=== PATIENT | female | born 1980 | race Caucasian/White ===

== ENCOUNTER 2018-05-21 19:01 | Day surgery (SDC) | payer OTHER ==
[~2018-05-21 19:01] MED LIST: Dexamethasone 20 MG/5 ML VIAL ONE; ISOVUE-370 76%-LOCM 1 ML ONE; Ketorolac Tromethamine 30 MG/ML VIAL ONE; Lidocaine 1% PF 5 ML VIAL ONE; Ondansetron PF 4 MG/2 ML Vial ONE; PROPOFOL 200 MG/20 ML VIAL ONE; Rocuronium Bromide 10 MG/ML (10ML VIAL) ONE; Succinylcholine Chloride 20 MG/ML 10 ml SYRINGE FS ONE
[2018-05-21 19:52] LABS: #Basophils 0.1 thou/uL (0.0-0.2); #Eosinphils 0.3 thou/uL (0.0-0.7); #Lymphocytes 1.9 thou/uL (1.20-3.40); #Monocytes 0.4 thou/uL (0.11-0.59); #Neutrophils 9.4 thou/uL (1.40-6.50); %Basophils 0.6 % (0.0-1.0); %Eosinophils 2.1 % (0.0-10.0); %Lymphocytes 15.9 % (21.0-51.0); %Monocytes 3.2 % (0.0-10.0); %Neutrophils 78.2 % (42.0-75.0); Hemoglobin 13.7 g/dL (12.0-16.0); Mean Corpuscular HGB CONC 33.3 g/dL (32.0-36.0); Mean Corpuscular Hemoglobin 30.3 pg (27.0-31.0); Mean Platelet Volume 7.7 fL (7.4-10.4); Platelet Count 214 thou/uL (130-400); RBC Distribution Width 12.3 % (11.5-14.5); Red Blood Cell (RBC) Count 4.51 mill/uL (4.20-5.40)
[2018-05-21 19:57] LABS: BHCG - Serum Negative (NEGATIVE); Pregs Control Background? CLEAR/WHITE (CLR/WHITE); Pregs Control Bar Appear? YES (CONTROL BAR)
[2018-05-21 20:11] LABS: ALT (SGPT) 12 U/L (8-55); AST (SGOT) 13 U/L (5-34); Albumin 4.7 g/dL (3.5-5.0); Alkaline Phosphatase 49 U/L (40-150); Anion Gap 14 mmol/L (10-20); BUN (Urea Nitrogen) 12 mg/dL (7.0-18.7); Bilirubin, Total 0.7 mg/dL (0.2-1.2); Calc. Creatinine Clearance 0 mL/min (70-130); Calcium 9.7 mg/dL (7.8-10.44); Carbon Dioxide 24 mmol/L (22-29); Chloride 107 mmol/L (98-107); Estimated GFR-MDRD 56; Globulin 2.7 g/dL (2.4-3.5); Glucose 111 mg/dL (70-105); Lipase 15 U/L (8-78); Potassium 3.6 mmol/L (3.5-5.1); Protein, Total 7.4 g/dL (6.0-8.3); Sodium 141 mmol/L (136-145)
[2018-05-21 20:12] LABS: Bilirubin Negative (Negative); Blood, Urine Small (Negative); Clarity CLEAR (Clear); Glucose, Urine (Dipstick) Negative (Negative); Leukocyte Negative (Negative); Nitrite Negative (Negative); Protein, Urine (Dipstick) Negative (Neg-Trace); Specific Gravity, Urine 1.024 (1.002-1.036); pH, Urine 6.5 (5.0-9.0)
[2018-05-21 20:15] LABS: Bacteria/HPF Rare-Few HPF (None Seen); Hyaline Casts/LPF 0-3 HYALINE CAST LPF (0-3 Hyaline); Pathc Cast-AUWi Flag 0.87 (0-2.49); WBC/HPF 0-3 HPF (0-3)
[2018-05-21] MEDS ORDERED: Piperacillin/Tazobactam 3.375 GM VIAL ONE (20:44)
--- NOTE | 2018-05-21 20:44 | CT ---
CONTRAST ENHANCED CT IMAGES ABDOMEN AND PELVIS: 05/21/18 HISTORY: Abdominal pain, nausea, loose stools. Contrast enhanced CT images of the abdomen and pelvis obtained. IV contrast was given. The lung bases are unremarkable. No evidence of free intraperitoneal air seen. A small umbilical hernia is seen. The liver, spleen, pancreas, gallbladder, adrenal glands, and kidneys are unremarkable. No evidence of periaortic lymphadenopathy seen. There is abnormal inflammatory change surrounding the mildly dilated appendix. Appendiceal diameter m easures up to 11 mm. This may represent early changes of appendicitis. No evidence of bowel obstructi on seen. An intrauterine device is seen. The ovaries are unremarkable. IMPRESSION: Some surrounding fat stranding surrounding the appendix which is mildly dilated. Findings concerning for changes of early appendicitis. POS: [facility]
[2018-05-21] MEDS ORDERED: Bupivacaine HCl 0.5%/Epinephrine 1:200,000/PF 30 ml Vial ONE (21:01)
[2018-05-21] MEDS ORDERED: Fentanyl 100 MCG/2 ML VIAL ONE (21:38)
--- NOTE | 2018-05-21 22:25 | HP ---
CHIEF COMPLAINT: Abdominal pain. HISTORY: Ms. 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 She states that yesterday afternoon right before her shift began, she started feeling some abdominal discomfort in the lower abdomen. She came and then worked for full shift and was able to perform her usual duty. She thought it might get better if she went to bed but when she woke up this afternoon it was worse than before. The pain was made somewhat worse by getting up and moving around. She could not identify anything that was making it better and the pain was localized to the right lower quadrant, so she decided to come into the emergency room. She denies any fevers or chills. She had nausea, but no vomiting. Her appetite was somewhat less than usual, but she was still eating and keeping food down and in fact had dinner around 6 o'clock. Evaluation in the emergency room showed an elevated white count and a CT was ordered which showed stranding around the dilated appendix consistent with early appendicitis. PAST MEDICAL HISTORY: Hypothyroidism due to Graves disease. PAST SURGICAL HISTORY: Inguinal hernia repair as a baby. ALLERGIES: NO KNOWN ALLERGIES. OUTPATIENT MEDICATIONS: Include Synthroid and fenofibrate. FAMILY HISTORY: Noncontributory. REVIEW OF SYSTEMS: Ten-system review of systems negative except for HPI. SOCIAL HISTORY: She does not smoke, drink, or use illicit drugs. PHYSICAL EXAMINATION: VITAL SIGNS: The patient is afebrile with normal vital signs. GENERAL: Reveals a healthy-looking young woman, in no acute distress. She is not flushed or toxic in appearance and she is able to move about the bed without difficulty. HEENT: Unremarkable. NECK: Supple without lymphadenopathy or thyroid nodules. HEART: Regular in its rate and rhythm without murmurs, rubs, or gallops. LUNGS: Clear to auscultation bilaterally. ABDOMEN: Soft and nondistended. She has no palpable hernias or masses. She is tender to palpation in the right lower quadrant and has referred pain in the right lower quadrant, which relieves with palpation in the left lower quadrant. EXTREMITIES: Warm and well perfused without edema. NEURO: No focal deficits. PSYCHIATRIC: Alert, oriented, and appropriate. LABORATORY DATA: White count is mildly elevated at 12,000, and she does have a left shift. Electrolytes are unremarkable. LFTs are normal. Lipase is normal. Serum is negative. DIAGNOSTIC STUDIES: CT images are reviewed and I agree with the written report. Her appendix is dilated and there is some stranding in that region. There is also some stranding around the terminal ileum, but this looks reactive. The bowel wall does not look thickened or abnormal. ASSESSMENT: Acute appendicitis. PLAN: Laparoscopic appendectomy. Diagnosis and recommended treatment were discussed with the patient. Inherent risks of surgery were discussed. These include, but are not limited to, bleeding, infection, risk of anesthesia, damage to nearby structures including bowel, bladder, blood vessels, need for open surgery, need for further procedure. She understands and accepts these risks and wishes to proceed. If she does not have any evidence of perforation, she may go home postoperatively. If there is evidence of perforation, she will need to stay for IV antibiotics. All of her questions answered and she was posted emergently for the operating room. Job ID: [id number]
[2018-05-21] MEDS ORDERED: Promethazine HCl 25 MG/ML VIAL IM PRN (23:27)
[2018-05-21] MEDS ORDERED: Promethazine HCl 25 MG/ML VIAL SLOW IVP PRN (23:27)
[2018-05-21] MEDS ORDERED: Ondansetron HCl/PF 4 MG/2 ML Vial IVP PRN (23:27)
[2018-05-21] MEDS ORDERED: Promethazine HCl 25 MG/ML VIAL ONE (23:39)
[2018-05-22] MEDS ORDERED: HYDROcodone/Acetaminophen 5/325 mg Tablet ONE (00:22)
--- NOTE | 2018-05-22 14:58 | PDOC.OP ---
Operative Note - Operative Note Operative Note: PROCEDURE: Laparoscopic appendectomy SURGEON: Francisca Cole M.D. DATE OF PROCEDURE: 05/21/2018 PREOPERATIVE DIAGNOSIS: Appendicitis POSTOPERATIVE DIAGNOSIS: Appendicitis and umbilical hernia containing falciform ligament HISTORY: Patient with onset of abdominal pain and nausea yesterday. She came to the emergency room because the pain was getting worse and was found to have acute appendicitis. Recommendation was made to proceed with laparoscopic appendectomy. FINDINGS: Umbilical hernia containing preperitoneal fat from the falciform ligament. Acutely inflamed appendix without evidence of perforation. DESCRIPTION OF PROCEDURE: After informed consent was obtained and appropriate antibiotics continued, the patient was taken to the operating room and placed in the supine position and general endotracheal anesthesia was administered. The bladder was decompressed with a Jeter catheter and the abdomen was prepped and draped in the standard sterile fashion. On palpation of the abdomen with the patient relaxed she was found to have a palpable bulge in the infraumbilical area which was not reducible. The decision was made to place the larger port at this location or the hernia defect and repair the palpable hernia with sutures afterwards. Local anesthesia was infused to the skin and subcutaneous tissues inferior to the umbilicus. The hernia sac was dissected free circumferentially down to its base which was located at the base of the umbilicus. This was not able to be reduced due to the small size of the fascial defect. The hernia sac was opened and fatty tissues only encountered. These were able to be slowly reduced into the abdominal cavity. The fascial defect itself was about 1 cm with a large part was able to be placed through this defect. Carbon dioxide gas insufflated without difficulty. Opening pressure was less than 5. Carbon dioxide gas was insufflated to an intra-abdominal pressure 15 and the patient tolerated this well. The abdominal cavity was examined and no adhesions seen. Two additional ports were placed in the suprapubic and left lateral abdomen under direct laparoscopic vision after local anesthesia was infused at these sites. The camera was moved to the left lower quadrant location and the umbilical area examined. There were no adhesions at this level and it was felt that the fatty tissue in the hernia sac was fossa falciform ligament which extended down below the level of the umbilicus. The camera was then moved back to the umbilical position and attention turned to the appendix. The appendix was identified and appeared inflamed but not perforated. This was densely adherent to the fatty tissues lateral and posterior to the cecal cap. The appendix was grasped by the mesoappendix and elevated, and the appendix was dissected free of the surrounding inflamed fatty tissues. The mesoappendix was then sequentially ligated and divided down to the base of the appendix, which was normal in appearance and was clearly seen to be at the confluence of the tenia. Two Endoloops were placed around the base of the appendix and the appendix was divided between these Endoloops, placed into an EndoCatch bag and drawn out through the suprapubic incision. The suprapubic trocar was then replaced and the operative site was easily irrigated to clear. The suprapubic and left lateral trocars were then removed and hemostasis verified. Carbon dioxide gas was desufflated through the umbilical trocar which was then removed. The fascial defect was repaired under direct vision with 0 Vicryl suture on a UR 6 needle with excellent technical result. The skin incisions were irrigated and additional local anesthesia infused at each site. The subcutaneous tissues at the level of the umbilicus were reapproximated with 3-0 Monocryl sutures. The skin at all incision sites was closed with 4-0 subcuticular Monocryl sutures and Dermabond dressings were placed. Once the Dermabond dressing was dry, a cotton ball and Tegaderm dressing was placed at the umbilicus as a pressure dressing. The patient was extubated and taken to the recovery room in good condition. Estimated blood loss was minimal. There were no complications. SPECIMEN: Appendix.
== END 2018-05-22 00:40 | disposition home or self-care (01) ==
LOC: ERS 19:01 → SDC/OP 21:52
PROVIDERS: ATTEND Surgery
DX: K35.80 Unspecified acute appendicitis (principal); K42.0 Umbilical hernia with obstruction, without gangrene; E05.00 Thyrotoxicosis with diffuse goiter without thyrotoxic crisis or storm; E03.9 Hypothyroidism, unspecified; F17.210 Nicotine dependence, cigarettes, uncomplicated; E78.5 Hyperlipidemia, unspecified; Z79.899 Other long term (current) drug therapy
CPT/HCPCS: 36415; 74177; 80053; 81003; 81015; 83690; 84703; 85025; 88304; 96365; J0670; J1100; J1885; J2001; J2405; J2543; J2550; J2704; J3010; Q9966

== ENCOUNTER 2018-05-29 07:27 | Inpatient (IN) | payer OTHER ==
[2018-05-29] MEDS ORDERED: ISOVUE-370 76%-LOCM 1 ML ONE (07:47)
[2018-05-29 08:38] LABS: #Eosinphils 0.2 thou/uL (0.0-0.7); #Lymphocytes 1.2 thou/uL (1.20-3.40); #Monocytes 0.5 thou/uL (0.11-0.59); #Neutrophils 7.9 thou/uL (1.40-6.50); %Basophils 0.4 % (0.0-1.0); %Eosinophils 2.5 % (0.0-10.0); %Lymphocytes 12.4 % (21.0-51.0); %Monocytes 5.4 % (0.0-10.0); %Neutrophils 79.4 % (42.0-75.0); Hemoglobin 12.4 g/dL (12.0-16.0); Mean Corpuscular HGB CONC 33.1 g/dL (32.0-36.0); Mean Corpuscular Hemoglobin 30.1 pg (27.0-31.0); Mean Platelet Volume 6.3 fL (7.4-10.4); Platelet Count 381 thou/uL (130-400); RBC Distribution Width 12.2 % (11.5-14.5); Red Blood Cell (RBC) Count 4.11 mill/uL (4.20-5.40)
[2018-05-29 08:57] LABS: ALT (SGPT) 14 U/L (8-55); AST (SGOT) 12 U/L (5-34); Albumin 4.1 g/dL (3.5-5.0); Alkaline Phosphatase 71 U/L (40-150); Anion Gap 16 mmol/L (10-20); BUN (Urea Nitrogen) 8 mg/dL (7.0-18.7); Bilirubin, Total 0.3 mg/dL (0.2-1.2); Calc. Creatinine Clearance 0 mL/min (70-130); Calcium 9.8 mg/dL (7.8-10.44); Carbon Dioxide 23 mmol/L (22-29); Chloride 104 mmol/L (98-107); Estimated GFR-MDRD 68; Globulin 3.6 g/dL (2.4-3.5); Glucose 93 mg/dL (70-105); Lipase 7 U/L (8-78); Protein, Total 7.7 g/dL (6.0-8.3); Sodium 139 mmol/L (136-145)
[2018-05-29] MEDS ORDERED: Ketorolac Tromethamine 30 MG/ML VIAL ONE (09:42)
[2018-05-29 10:33] LABS: Bilirubin Negative (Negative); Blood, Urine Small (Negative); Clarity CLOUDY (Clear); Glucose, Urine (Dipstick) Negative (Negative); Leukocyte Large (Negative); Nitrite Negative (Negative); Protein, Urine (Dipstick) Negative (Neg-Trace); Specific Gravity, Urine 1.009 (1.002-1.036); pH, Urine 6.5 (5.0-9.0)
[2018-05-29 10:35] LABS: Bacteria/HPF None Seen HPF (None Seen); Hyaline Casts/LPF 0-3 HYALINE CAST LPF (0-3 Hyaline); Pathc Cast-AUWi Flag 0.14 (0-2.49); Squamous Epithelial None Seen HPF (0-3)
[2018-05-29 10:38] LABS: Pregnancy Test - Urine (BHCG) Negative (Negative); Pregu Control Background? CLEAR/WHITE (CLR/WHITE); Pregu Control Bar Appear? YES (CONTROL BAR); Specific Gravity 1.009 (1.002-1.036); Yeast-AUWi Flag 47.6 (0-25.0)
[2018-05-29 10:45] LABS: RBC/HPF 0-3 HPF (0-3); Yeast-All Forms Rare HPF (None Seen)
--- NOTE | 2018-05-29 11:04 | CT ---
CT ABDOMEN AND PELVIS WITH IV CONTRAST: DATE: 05/29/2018. PROVIDED CLINICAL HISTORY: Right lower quadrant pain status post laparoscopic appendectomy. FINDINGS: Comparison is made with the study dated 05/21/2018. Subsegmental atelectatic changes are seen at each lung base with a small amount of right pleural flui d. The liver, spleen, pancreas, kidneys, and adrenal glands demonstrate an unremarkable CT appearance. Interval changes of appendectomy. There are patchy areas of stranding of the mesenteric fat without localization. There is no evidence for bowel obstruction. There is a single tiny focus of free intr aperitoneal gas that is likely postoperative in nature. No free intraperitoneal fluid is evident. There is a focal area of somewhat circumscribed gas and fluid density within the left hemipelvis osvaldo cent to the left adnexa measuring about 3.8 cm. This appears separate from regional small bowel. Ev aluation is limited in the absence of oral contrast material. IUD is noted centrally within the uterus. The osseous structures and vascular structures appear unre markable. IMPRESSION: A 3.8 cm left adnexal fluid and gas collection, which may reflect abscess. This does not appear to b e percutaneously accessible. POS: [facility]
--- NOTE | 2018-05-29 12:07 | ULT ---
ULTRASOUND PELVIC TRANSVAGINAL WITH DOPPLER: HISTORY: Left periovarian abscess. COMPARISON: CT abdomen and pelvis of same day. FINDINGS: Real-time abel scale, color Doppler, and spectral analysis of the pelvis performed transabdominal and transvaginal approach. The uterus measures 9.1 x 4.3 x 5.2 cm with intrauterine device in place. The right ovary measures 2 .6 x 1.9 x 1.9 cm and the left ovary measures 3.3 x 2.3 x 2.3 cm. Adequate vascular flow to both ova jordon. At the left adnexa just craniad and anterior to the left ovary is a complex collection with spicular reflectors indicating gas. This measures up to 4.3 cm. IMPRESSION: Left periovarian collection containing gas concerning for an abscess given recent postoperative findi ngs. POS: [facility]
[2018-05-29] MEDS ORDERED: MEROPENEM 1 GM/50 ML 1 GM in Premix Bag 1 BAG IVPB SCH ×2 (12:15→16:00)
--- NOTE | 2018-05-29 12:19 | PDOC.EVN ---
Event Note - Event Note Event Note: OBGYN consult at 1215: D/W Dr Vega (ED) via phone (informal consult) This patient is a 38 yo s/p lap appy [address] Henry Cole. The patient arrives to ED for eval of pelvic pain/abdominal pain. CT/Sono state possible pelvic abscess by left ovary. Due to close postop proximity from the lap appy, the likehood that is is new onset TOA (security assurance analyst etiology) is low compared to being a postop abscess. I would recommend admission to gen surgery for postop follow up and IV antibiotics. If diagnostic laparoscopy deemed neded by general surgery, the OBGYN team will be available for intraop eval. For now, would recommend standard IV antibiotics for postop abscess: A/G/Clinda or Rocephin and doxy with flagyl.
--- NOTE | 2018-05-29 13:18 | PDOC.EVN ---
Event Note - Event Note Event Note: OBGYN: Patient has been seen at bedside, consult dictated. Location: ED bed 21 Time: 8623-0095
--- NOTE | 2018-05-29 13:36 | CON ---
DATE OF CONSULTATION: 05/29/2018 TIME OF EVALUATION: Roughly 12:45 until 13:00. LOCATION: ER, bed 21. CONSULTING PHYSICIAN: Dr. Francisca Cole with General Surgery. REASON FOR EVALUATION: Possible intraabdominal/pelvic abscess, questionable TOA. The patient is 8 days status post laparoscopic appendectomy. HISTORY OF PRESENT ILLNESS: This is a 38-year-old female, 3, para 3, status post laparoscopic appendectomy [address] Cole. She has had 3 vaginal deliveries in the past. She states that about 2 to 3 days ago, she started having diarrhea and some increased abdominal pain. She came in for evaluation of the abdominal discomfort. Sonogram and CT scan done through the ER showed a possible abscess on the left lower quadrant adjacent to the ovary. REVIEW OF SYSTEMS: The patient states that she has had some vaginal discharge which is clear/yellowish and some pink discoloration. She denies any vaginal odor. Also on review of systems, it is noted that she has an IUD in place (Mirena) the last 4 years. This was placed by Dr. Simmons. She has had no cycles for the last 4 years. Last, on review of systems, she has been taking Tylenol and Motrin alternatively , so it is unclear if she has had temperature. OB HISTORY: Significant for 3 prior vaginal deliveries. ALLERGIES: NONE. PAST SURGICAL HISTORY: Laparoscopic appendectomy 8 days ago and an inguinal hernia repair as a child when she was about 4 years old. GYNECOLOGICAL HISTORY: She last had sexual intercourse about a week before the laparoscopic surgery, but no surgery since. PHYSICAL EXAMINATION: VITAL SIGNS: Blood pressure is 132/81, pulse is in the 60s, she is afebrile. GENERAL: Clinically, she is in no acute distress. ABDOMEN: Soft and nontender. The incision sites are clean and intact and well healed. There is no evidence of rebound tenderness. Speculum exam was deferred. Interventions ordered, I have ordered and requested a VP3 and a GC and chlamydia PCR vaginal swab. I have discussed this with Dr. Vega and the nursing staff, who will collect this once the PCR tube has arrived in the tube system from the lab. ASSESSMENT: This is a 38-year-old, G3, P3, 8 days status post laparoscopic appendectomy with a left-sided/left lower quadrant, possible abscess. Possibility of a new tubo-ovarian abscesses is unlikely due to the temporal relation to the laparoscopic appendectomy. This may be a postop abscess due to its timing. Additionally, the patient has not had intercourse since surgery and if there was active pelvic inflammatory disease at time of surgery, this may have been seen laparoscopically. Sono confirms IUS in place. PLAN: 1. Admit for IV antibiotics. 2. Please see my previous note entry describing antibiotics preferred. 3. The patient will go home after being at least 24 hours afebrile in-house with oral doxycycline and Flagyl recommended. 4. Follow up with Dr. Simmons for evaluation of the left lower quadrant collection in about 2 to 4 weeks. 5. No acute concerns at this time again. I have discussed this patient with both Dr Cole and Dr Vega. Admission to Dr Cole with us on consults as needed. Job ID: [id number] MTDD
[2018-05-29 14:44] VITALS: BMI 39.1
[2018-05-29] MEDS ORDERED: Morphine 4 MG/ML VIAL SLOW IVP PRN (16:10)
[2018-05-29] MEDS: MEROPENEM 1 GM/50 ML 1 GM in Premix Bag 1 BAG IVPB SCH ×2 (16:42→23:17)
--- NOTE | 2018-05-29 19:41 | PDOC.EVN ---
Event Note - Event Note Event Note: Call from floor: 1944: Notified by patient's RN that VP3 was not sent to lab from ED. It was ordered by my request, to CLAUD[facility], at 1330 or so. I have requested we send the VP3 now. GC and CHL sent already. On meropenam per Gen Surg
[2018-05-29] MEDS: Ketorolac Tromethamine 30 MG/ML VIAL IVP PRN (20:06)
--- NOTE | 2018-05-30 00:17 | PDOC.EVN ---
Event Note - Event Note Event Note: Lab check: VP3 negative
[2018-05-30] MEDS: Ketorolac Tromethamine 30 MG/ML VIAL IVP PRN (02:05)
--- NOTE | 2018-05-30 02:14 | HP ---
CHIEF COMPLAINT: Abdominal pain. HISTORY: Ms. King is a 38-year-old woman who underwent a laparoscopic appendectomy on 05/21/2018. She recovered well postoperatively, but earlier this week developed some crampy abdominal pain and diarrhea. Her son was ill at the time as well, so she thought it was just a stomach virus. However, the crampy abdominal pain has persisted and she has begun having night sweats, so she decided to come into the hospital. She has been alternating Tylenol and ibuprofen for the cramps, so has not had any fevers that she has noticed. Since the diarrhea stopped a couple of days ago, she has not had any bowel movement, but she is not nauseated or throwing up. The pain is in the lower abdomen and she has not been able to identify any definite exacerbating or alleviating factors. She has had some vaginal discharge for the last 2 days. She denies any dysuria, urgency, or frequency. PAST MEDICAL HISTORY: Hypothyroidism due to Graves disease. PAST SURGICAL HISTORY: Inguinal hernia repair as a baby and laparoscopic appendectomy last week. ALLERGIES: NO KNOWN DRUG ALLERGIES. MEDICATIONS: 1. Synthroid. 2. Fenofibrate. FAMILY HISTORY: Noncontributory. REVIEW OF SYSTEMS: Ten system review of systems is negative except per HPI. SOCIAL HISTORY: She works as a nurse in the [employer] and does not smoke, drink, or use illicit drugs. PHYSICAL EXAMINATION: VITAL SIGNS: Temperature 97.7, heart rate 87, respirations 17, 97% saturated on room air, and blood pressure 143/88. GENERAL: Reveals a healthy-appearing young woman, in no acute distress. She is not flushed or toxic in appearance. She is not jaundiced or icteric. HEENT: Unremarkable. NECK: Supple without lymphadenopathy or thyroid nodules. HEART: Regular in its rate and rhythm without murmurs, rubs, or gallops. LUNGS: Clear to auscultation bilaterally. ABDOMEN: Soft and nondistended. She is tender to palpation in the suprapubic area, greater than the right lower quadrant and left lower quadrant. She is nontender to palpation in the upper abdomen. Her laparoscopic incisions are well healed. There is no erythema, induration, or fluctuance. EXTREMITIES: Warm and well perfused without edema. NEUROLOGIC: No focal deficits. PSYCHIATRIC: Alert, oriented, and appropriate. LABORATORY DATA: White count is high normal at 10 with a little bit of a left shift. Electrolytes are unremarkable. Lipase is 7, and LFTs are normal. UA showed greater than 50 white cells, no squamous cells were seen, and no bacteria were seen. There was a small amount of blood and large leukocyte esterase. CT of the abdomen and pelvis showed a left adnexal abscess which measures about 3.8 cm and pelvic ultrasound was consistent with this. ASSESSMENT AND PLAN: Left adnexal abscess. This may be postoperative in nature, although there was no evidence of perforation at the time of her appendicitis, will be an unusual presentation for tubo-ovarian abscess. Her left ovary was not examined during her operation, but no abnormalities were noted on CT at that time. Given the small size, this may be adequately treated with IV antibiotics alone, but if her symptoms do not rapidly resolve, then laparoscopic drainage can be considered. She is going to be admitted for IV antibiotics and observation. Job ID: [id number]
--- NOTE | 2018-05-30 06:32 | PDOC.EVN ---
Event Note - Event Note Event Note: Lab/vitals check: GC and Chl still pending On IV Meropenem TMax 99.0 WBC normal last check Assessment: 8 days postop lap appy with pelvic abscess, infection prevention coordinator source less likely than postop related. IUS (Mirena) intrauterine, in use. VP3 negative. Plan: Continue care as per primary MD (Dr Cole). Once cleared for dsch, would keep on oral ABX for 7-10 days. Patient to follow up with Dr Simmons in 2 weeks.
[2018-05-30] MEDS: MEROPENEM 1 GM/50 ML 1 GM in Premix Bag 1 BAG IVPB SCH (08:21)
[2018-05-30 10:09] LABS: #Eosinphils 0.3 thou/uL (0.0-0.7); #Lymphocytes 1.5 thou/uL (1.20-3.40); #Monocytes 0.4 thou/uL (0.11-0.59); #Neutrophils 5.5 thou/uL (1.40-6.50); %Basophils 0.3 % (0.0-1.0); %Eosinophils 3.5 % (0.0-10.0); %Lymphocytes 19.4 % (21.0-51.0); %Monocytes 4.9 % (0.0-10.0); %Neutrophils 71.8 % (42.0-75.0); Hemoglobin 11.7 g/dL (12.0-16.0); Mean Corpuscular HGB CONC 32.9 g/dL (32.0-36.0); Mean Corpuscular Hemoglobin 29.9 pg (27.0-31.0); Mean Corpuscular Volume 90.8 fL (78.0-98.0); Mean Platelet Volume 6.4 fL (7.4-10.4); Platelet Count 366 thou/uL (130-400); RBC Distribution Width 12.3 % (11.5-14.5); Red Blood Cell (RBC) Count 3.93 mill/uL (4.20-5.40); White Blood Cell (WBC) Count 7.7 thou/uL (4.8-10.8)
[2018-05-30 12:03] VITALS: BP 135/83; TEMP 99.1
--- NOTE | 2018-05-30 14:46 | PDOC.EVN ---
Event Note - Event Note Event Note: Pt. discharged home per Dr. Cole on Flagyl, Levoquin and Doxycycline. Will f/u with Dr. Simmons in next 1-2 weeks. GC and Chlamydia probes are pending.
[2018-05-31 23:57] LABS: Chlamydia by PCR Not Detected (NotDetected); GC by PCR Not Detected (NotDetected)
== END 2018-05-30 14:52 | disposition home or self-care (01) | DRG 863 ==
LOC: ERS 07:27 → SURG B 14:16
PROVIDERS: ADMIT Surgery; ATTEND Surgery
DX: T81.49XA Infection following a procedure, other surgical site, initial encounter (principal); E05.00 Thyrotoxicosis with diffuse goiter without thyrotoxic crisis or storm; Z98.890 Other specified postprocedural states; Z97.5 Presence of (intrauterine) contraceptive device; F17.210 Nicotine dependence, cigarettes, uncomplicated
CPT/HCPCS: 36415; 74177; 76856; 80053; 81003; 81015; 81025; 83690; 85025; 87086; 87480; 87491; 87510; 87591; 87660; J1885; J2185; Q9966

== ENCOUNTER 2018-06-13 07:42 | Outpatient (CLI) | payer OTHER ==
--- NOTE | 2018-06-13 10:22 | CT ---
CT ABDOMEN AND PELVIS WITH IV AND ORAL CONTRAST: HISTORY: Pelvic inflammatory disease . Recent appendectomy with residual postoperative fluid collections. FINDINGS: On today's exam, the fluid and gas collection previously seen in the left lower quadrant has nearly c ompletely resolved, now with a collapsed area around minimal fluid. At the left adnexa, a lobular fl uid collection now measures up to 7.9 x 6.3 cm greatest diameters, larger than on the previous study. There is a thin surrounding enhancing wall and subtle stranding in the adjacent left lower quadrant fat. Minimal inflammation of the nearby sigmoid colon. No free fluid in the pelvis. Intrauterine contrac eptive device remains in place. No free air of the abdomen remains. There are degenerative changes of the lumbar spine. IMPRESSION: The enlarging fluid collection in the left lower quadrant is favored to represent a very mildly compl icated fluid distention of the left fallopian tube, likely reactive to the recent inflammation. The gas and fluid collection previously seen just anterior to the adnexa has nearly completely resolved, now with only minimal fluid remaining. Otherwise, stable CT of the abdomen and pelvis. Findings were called to Demetra at the office of Dr. Cole at 0844 hours. CODE CR POS: [facility]
== END 2018-06-13 07:43 | disposition home or self-care (01) ==
LOC: CT 07:42
PROVIDERS: ATTEND Surgery
DX: N73.9 Female pelvic inflammatory disease, unspecified (principal)
CPT/HCPCS: 74177

== ENCOUNTER 2019-12-23 08:30 | Outpatient (CLI) | payer OTHER ==
--- NOTE | 2019-12-23 09:39 | MMO ---
Bilateral MAMMO Bilat Screen [facility]DI+DAIN. CLINICAL HISTORY: Patient is 39 years old and is seen for screening. The patient has no family history of breast cancer. The patient has no personal history of cancer. VIEWS: The views performed were: bilateral craniocaudal with tomosynthesis and bilateral mediolateral oblique with tomosynthesis. This study has been interpreted with the assistance of computer-aided detection. MAMMOGRAM FINDINGS: There are scattered fibroglandular densities. There are no suspicious masses, suspicious calcifications, or new areas of architectural distortion. IMPRESSION: THERE IS NO MAMMOGRAPHIC EVIDENCE OF MALIGNANCY. A ROUTINE FOLLOW-UP MAMMOGRAM IN 1 YEAR IS RECOMMENDED. THE RESULTS OF THIS EXAM WERE SENT TO THE PATIENT. ACR BI-RADS Category 1 - Negative MAMMOGRAPHY NOTE: 1. A negative mammogram report should not delay a biopsy if a dominant of clinically suspicious mass is present. 2. Approximately 10% to 15% of breast cancers are not detected by mammography. 3. Adenosis and dense breasts may obscure an underlying neoplasm. Reported by: XANDER ADEN MD Electonically Signed: [id number]
== END 2019-12-23 08:31 | disposition home or self-care (01) ==
LOC: BICMAMMO 08:30
PROVIDERS: ATTEND Obstetrics & Gynecology
DX: Z12.31 Encounter for screening mammogram for malignant neoplasm of breast (principal)
CPT/HCPCS: 77063; 77067

== ENCOUNTER 2023-05-30 11:33 | Outpatient (CLI) | payer BC | END 2023-05-30 11:34 | disposition home or self-care (01) | LOC: BICMAMMO 11:33 | PROVIDERS: ATTEND Obstetrics & Gynecology | DX: Z12.31 Encounter for screening mammogram for malignant neoplasm of breast (principal) | CPT/HCPCS: 77063; 77067 ==